=== PATIENT | female | born 1985 ===

== ENCOUNTER 2017-06-05 12:30 | Emergency (ER) | payer MEDICAID ==
[2017-06-05 13:05] VITALS: O2SAT 99
[2017-06-05] MEDS: Sodium Chloride 0.9% 1,000 ML IV STA (14:28)
[2017-06-05 14:45] LABS: BASO % 0.4 % (0.0-2.0); EOS % 0.1 % (0.0-4.0); HEMOGLOBIN 14.2 g/dL (12.0-16.0); LYMPH # 0.4 K/uL (1.0-4.3); LYMPH % 5.5 % (20.0-40.0); MEAN CORPUSCULAR HEMOGLOBIN 31.6 pg (27.0-31.0); MEAN CORPUSCULAR HGB CONC 33.6 g/dL (33.0-37.0); MEAN PLATELET VOLUME 8.6 fl (7.2-11.7); MONO # 0.4 K/uL (0.0-0.8); MONO % 4.8 % (0.0-10.0); NEUT # 7.1 K/uL (1.8-7.0); NEUT % 89.2 % (50.0-75.0); NRBC % 0.1 % (0.0-0.0); PLATELET COUNT 253 K/uL (130-400); RBC 4.49 Mil/uL (3.80-5.20); RED CELL DISTRIBUTION WIDTH 13.9 % (11.5-14.5)
[2017-06-05 14:46] LABS: ALB/GLOB RATIO 1.2 (1.0-2.1); ALBUMIN 4.3 g/dL (3.5-5.0); ALT/SGPT 25 U/L (9-52); AST/SGOT 21 U/L (14-36); BLOOD UREA NITROGEN 9 mg/dl (7-17); CALCIUM 9.4 mg/dL (8.4-10.2); GFR AFRICAN-AMERICAN > 60; GFR NON-AFRICAN AMERICAN > 60; LIPASE 82 U/L (23-300); MAGNESIUM 1.8 MG/DL (1.6-2.3)
--- NOTE | 2017-06-05 14:59 | ED PDOC ---
HPI: Abdomen Time Seen by Provider: 06/05/17 13:20 Chief Complaint (Nursing): GI Problem Chief Complaint (Provider): abdominal pain History Per: Patient History/Exam Limitations: no limitations Onset/Duration Of Symptoms: Days (x1) Outside of [place] travel?: No Current Symptoms Are (Timing): Still Present Additional Complaint(s): 32 year old female, currently 9 weeks , presents to the emergency department with a complaint of abdominal pain associated with 10 episodes of watery, nonbilious diarrhea, pelvic cramping, nausea, 3 episodes of nonbloody, nonbilious vomiting and decreased appetite ongoing for 1 day. Denied any difficulty urinating, bloody urine, incontinence, vaginal discharge, vaginal bleeding, sick contacts or recent travel. PMD: [facility] GEOTECHNICIAN: Dr. Evelio Wang MD Past Medical History Reviewed: Historical Data, Nursing Documentation, Vital Signs Vital Signs: Last Vital Signs Temp 99.4 F 06/05/17 13:03 Pulse 100 H 06/05/17 13:03 Resp 16 06/05/17 13:03 BP 121/84 06/05/17 13:03 Pulse Ox 99 06/05/17 17:08 - Medical History PMH: Migraine - Surgical History Surgical History: Denies: No Surg Hx Other surgeries: ovarian cyst - Family History Family History: States: Unknown Family Hx - Social History Current smoker - smoking cessation education provided: No Ex-Smoker (has not smoked in the last 12 months): Yes Alcohol: None Drugs: Denies - Immunization History Hx Tetanus Toxoid Vaccination: Yes Hx Influenza Vaccination: Yes Hx Pneumococcal Vaccination: No - Home Medications Home Medications: Ambulatory Orders Medication Instructions Recorded Mucinex 09/16/16 - Allergies Allergies/Adverse Reactions: Allergies Allergy/AdvReac Type Severity Reaction Status Date / Time No Known Allergies Allergy Verified 06/05/17 13:02 Review of Systems ROS Statement: Except As Marked, All Systems Reviewed And Found Negative Gastrointestinal: Positive for: Nausea, Vomiting (x3 nonbloody, nonbilious), Abdominal Pain (and pelvic cramping), Diarrhea (x10 watery, nonbilious), Other ( decreased appetite) Genitourinary Female: Negative for: Dysuria, Incontinence, Hematuria, Vaginal Discharge, Vaginal Bleeding Physical Exam - Reviewed Nursing Documentation Reviewed: Yes Vital Signs Reviewed: Yes - Physical Exam Appears: Positive for: Non-toxic, No Acute Distress (tired appearing) Head Exam: Positive for: ATRAUMATIC, NORMOCEPHALIC Skin: Positive for: Warm, Dry ENT: Positive for: Other (tacky mucous membranes). Negative for: Pharyngeal Erythema, Tonsillar Exudate Neck: Positive for: Painless ROM, Supple Cardiovascular/Chest: Positive for: Regular Rate, Rhythm, Chest Non Tender. Negative for: Murmur Respiratory: Positive for: Normal Breath Sounds. Negative for: Respiratory Distress Gastrointestinal/Abdominal: Positive for: Soft. Negative for: Tenderness, Mass , Distended, Guarding, Rebound Back: Positive for: Normal Inspection. Negative for: Decreased ROM Extremity: Positive for: Normal ROM. Negative for: Deformity Lymphatic: Negative for: Adenopathy Neurologic/Psych: Positive for: Alert. Negative for: Motor/Sensory Deficits - Laboratory Results Result Diagrams: 06/05/17 14:33 06/05/17 14:33 - ECG O2 Sat by Pulse Oximetry: 99 (RA) Pulse Ox Interpretation: Normal Medical Decision Making Medical Decision Making: Initial Impression: Vomiting; Diarrhea Differential Diagnosis: Gastroenteritis; Dehydration; Electrolyte abnormality; Viral illness Initial Plan: * CMP * Lipase * Magnesium * Phosphorus * Urine * Urine dipstick * CBC * NS 1,000ml IV per 1,000mls/hr * Pepcid 20mg IVP * Zofran inj 4mg IVP * US OB No clinically significant lab abnormalities. Accession No. : [id number] Patient Name / ID : JAZMYNE ROMAN / [id number] Exam Date : 06/05/2017 15:54:32 ( Approved ) Study Comment : Sex / Age : F / 32Y Creator : Napoleon Casiano MD Dictator : Napoleon Casiano MD Stenocaptioner : Border Machine Operator : Napoleon Casiano MD Approver2 : Report Date : 06/05/2017 16:45:35 My Comment : PROCEDURE: OB Pelvic Ultrasound HISTORY: pelvic pain dehydration LMP: 04/02/2017 COMPARISON: None available. FINDINGS: UTERUS: Gestational sac: Single intrauterine gestation. Measures 4.0 cm compatible with estimated gestational age of 9 weeks, 3 days Yolk sac: Measures 0.3 cm pole: [place]-rump length measures 2.4 cm compatible with estimated gestational age of 9 weeks, 1 day Heart rate: 182 bpm. age (Ultrasound estimated): 9 weeks, 2 days [place]-gestational hemorrhage: 2 small areas measuring up to 1.7 cm. Date of delivery (Ultrasound estimated) : 01/06/2018 Uterus measures 12.3 x 10.3 x 8.1 cm. Anteverted. Normal in size and appearance. CERVIX: Measures 5.0 cm. Long and closed. No cervical abnormality seen. RIGHT OVARY: Measures 4.9 x 3.6 x 2.3 cm. Small follicles/ cysts. No mass lesion. Normal flow. LEFT OVARY: Measures 3.3 x 2.7 x 2.3 cm. Heterogeneously hyperechoic structure measuring 5.8 x 6.1 x 4.2 cm. Normal flow. FREE FLUID: Small volume fluid in the right adnexa. OTHER FINDINGS: None. IMPRESSION: Single live intrauterine gestation with average ultrasound age of 9 weeks, 2 days. heart rate 182 beats per minute. Cervix long and closed. Small subchorionic bleed. Heterogeneously hypoechoic structure in the left adnexa/ ovary, possibly representing ovarian dermoid. Follow-up is recommended. On reeval pt feeling better. No episodes of vomit in ER. DW pt findings and plan of care. Mandatory followup with atomic welder. Scribe Attestation: Documented by Rosemarie Cheatham, acting as a scribe for Harriet Jensen MD. Provider Scribe Attestation: All medical record entries made by the Scribe were at my direction and personally dictated by me. I have reviewed the chart and agree that the record accurately reflects my personal performance of the history, physical exam, medical decision making, and the department course for this patient. I have also personally directed, reviewed, and agree with the discharge instructions and disposition. Disposition - Clinical Impression Clinical Impression: Vomiting and diarrhea, Subchorionic hemorrhage in first trimester - Disposition Referrals: Evelio Wang [Non-Staff] - (CALL TOMORROW FOR FOLLOWUP APPOINTMENT BY THE END OF THE WEEK) Disposition: Routine/Home Disposition Time: 17:07 Condition: IMPROVED Instructions: Viral Gastroenteritis, Adult (DC) Forms: [facility] ED School/Work Excuse
[2017-06-05] MEDS ORDERED: Dextrose 5%/Lactated Ringer's 1,000 ML IV SCH (15:15)
[2017-06-05 15:28] LABS: LYMPHOCYTE 7 % (20-50); MONOCYTE 3 % (0-10); NEUTROPHIL 90 % (42-75); TOTAL CELLS COUNTED 100
[2017-06-05 15:29] LABS: PLATELET ESTIMATE NORMAL (NORMAL)
--- NOTE | 2017-06-05 16:47 | US ---
PROCEDURE: OB Pelvic Ultrasound HISTORY: pelvic pain dehydration LMP: 04/02/2017 COMPARISON: None available. FINDINGS: UTERUS: Gestational sac: Single intrauterine gestation. Measures 4.0 cm compatible with estimated gestational age of 9 weeks, 3 days Yolk sac: Measures 0.3 cm pole: [place]-rump length measures 2.4 cm compatible with estimated gestational age of 9 weeks, 1 day Heart rate: 182 bpm. age (Ultrasound estimated): 9 weeks, 2 days [place]-gestational hemorrhage: 2 small areas measuring up to 1.7 cm. Date of delivery (Ultrasound estimated) : 01/06/2018 Uterus measures 12.3 x 10.3 x 8.1 cm. Anteverted. Normal in size and appearance. CERVIX: Measures 5.0 cm. Long and closed. No cervical abnormality seen. RIGHT OVARY: Measures 4.9 x 3.6 x 2.3 cm. Small follicles/ cysts. No mass lesion. Normal flow. LEFT OVARY: Measures 3.3 x 2.7 x 2.3 cm. Heterogeneously hyperechoic structure measuring 5.8 x 6.1 x 4.2 cm. Normal flow. FREE FLUID: Small volume fluid in the right adnexa. OTHER FINDINGS: None. IMPRESSION: Single live intrauterine gestation with average ultrasound age of 9 weeks, 2 days. heart rate 182 beats per minute. Cervix long and closed. Small subchorionic bleed. Heterogeneously hypoechoic structure in the left adnexa/ ovary, possibly representing ovarian dermoid. Follow-up is recommended.
[2017-06-05] MEDS: Dextrose 5%/0.9% NS 1,000 ML IV SCH (17:24)
[2017-06-05 17:59] VITALS: BP 114/78; PULSE 80; RESP 18; TEMP 98.4
== END 2017-06-05 17:59 | disposition home or self-care (01) ==
LOC: H.ER 12:30
DX: O20.8 Other hemorrhage in early pregnancy (principal); O26.891 Other specified pregnancy related conditions, first trimester; O21.9 Vomiting of pregnancy, unspecified; Z3A.09 9 weeks gestation of pregnancy; N83.209 Unspecified ovarian cyst, unspecified side
CPT/HCPCS: 76817; 80053; 83690; 83735; 84100; 85025; 96374; 99283; J7040; J7042